=== PATIENT | female | born 1980 | race Asian ===

== ENCOUNTER 2017-10-14 01:39 | Emergency (ER) | payer BC ==
[~2017-10-14] VITALS: Ht 157.5 cm; Wt 94.3 kg
[2017-10-14] MEDS ORDERED: LISI10TA11 PO (02:23)
[2017-10-14 02:32] LABS: PLATELET COUNT 269 K/uL (152-353)
[2017-10-14 02:50] LABS: POTASSIUM 3.9 mmol/L (3.6-5.2); SODIUM 139 mmol/L (136-145)
[2017-10-14 03:38] VITALS: BP 138/87; TEMP 97.3
== END 2017-10-14 03:40 | disposition home or self-care (01) ==
LOC: ED 01:39
DX: K52.9 Noninfective gastroenteritis and colitis, unspecified (principal); R10.9 Unspecified abdominal pain
CPT/HCPCS: 36415; 80053; 81000; 82150; 83690; 85027; 99283

== ENCOUNTER 2019-01-13 14:24 | Outpatient (CLI) | payer BC ==
[~2019-01-13 14:24] MED LIST: LISI10TA11 PO
== END 2019-01-13 22:14 | disposition home or self-care (01) ==
LOC: MAMMO 14:24
DX: Z12.31 Encounter for screening mammogram for malignant neoplasm of breast (principal)

== ENCOUNTER 2020-01-29 13:58 | Outpatient (CLI) | payer BC | END 2020-01-29 19:03 | disposition home or self-care (01) | LOC: MAMMO 13:58 | DX: Z12.31 Encounter for screening mammogram for malignant neoplasm of breast (principal) ==

== ENCOUNTER 2020-09-02 09:21 | Outpatient (CLI) | payer BC ==
[2020-09-02 09:50] LABS: PLATELET COUNT 284 K/uL (152-353)
[2020-09-02 10:00] LABS: POTASSIUM 3.9 mmol/L (3.6-5.2)
== END 2020-09-02 19:02 | disposition home or self-care (01) ==
LOC: LABW 09:21
PROVIDERS: Internal Medicine
DX: R10.13 Epigastric pain (principal)
CPT/HCPCS: 36415; 80053; 81000; 82150; 83690; 85027; 86318

== ENCOUNTER 2020-10-28 12:16 | Outpatient (CLI) | payer BC, OTHER | END 2020-10-28 19:25 | disposition home or self-care (01) | LOC: RAD 12:16 | PROVIDERS: ATTEND Internal Medicine | DX: J40 Bronchitis, not specified as acute or chronic (principal) ==

== ENCOUNTER 2021-02-17 09:15 | Outpatient (CLI) | payer BC | END 2021-02-17 22:15 | disposition home or self-care (01) | LOC: MAMMO 09:15 | PROVIDERS: ATTEND Obstetrics & Gynecology | DX: Z12.31 Encounter for screening mammogram for malignant neoplasm of breast (principal) ==

== ENCOUNTER 2022-02-23 13:52 | Outpatient (CLI) | payer BC | END 2022-02-23 21:29 | disposition home or self-care (01) | LOC: MAMMO 13:52 | PROVIDERS: ATTEND Obstetrics & Gynecology | DX: Z12.31 Encounter for screening mammogram for malignant neoplasm of breast (principal) ==

== ENCOUNTER 2023-03-01 09:25 | Outpatient (CLI) | payer BC | END 2023-03-01 17:00 | disposition home or self-care (01) | LOC: MAMMO 09:25 | PROVIDERS: ATTEND Obstetrics & Gynecology | DX: Z12.31 Encounter for screening mammogram for malignant neoplasm of breast (principal) ==